=== PATIENT | female | born 1985 | race Caucasian/White ===

== ENCOUNTER 2017-12-17 10:08 | Emergency (ER) | payer OTHER ==
[~2017-12-17] VITALS: Ht 162.6 cm; Wt 68.0 kg
[2017-12-17] MEDS ORDERED: SODIUM CHLORIDE 0.9% 1,000 ML IV ONE (10:40)
[2017-12-17] MEDS ORDERED: LORAZEPAM 0.5MG TABLET PO ONE (11:00)
[2017-12-17 11:22] LABS: BASOPHILS % 0.6 % (0.0-2.0); EOSINOPHILS % 1.6 % (0.0-5.0); HEMATOCRIT. 38.3 % (36.0-48.0); LYMPHOCYTES % 31.7 % (20.0-50.0); MEAN CORPUSCULAR VOLUME 88.4 fL (81.0-99.0); MEAN PLATELET VOLUME 9.7 fl (7.4-10.4); MONOCYTES % 8.2 % (2.0-8.0); NEUTROPHILS % 57.9 % (40.0-76.0); PLATELET 204 x1000/uL (130-400); RED BLOOD CELL COUNT 4.33 mill/uL (4.2-5.4); RED CELL DISTRIBUTION WIDTH 13.8 % (11.6-14.6)
[2017-12-17 11:29] LABS: PROTHROMBIN TIME 10.2 sec (9.1-11.1)
[2017-12-17 11:37] LABS: HCG SCREEN NEGATIVE
[2017-12-17 12:01] LABS: CLARITY URINE CLEAR (CLEAR); COLOR URINE YELLOW (YELLOW); KETONES URINE NEGATIVE (NEGATIVE); LEUKOCYTE ESTERASE URINE NEGATIVE (NEGATIVE); NITRITE URINE NEGATIVE (NEGATIVE); OCCULT BLOOD URINE NEGATIVE (NEGATIVE); PH URINE 5.5 (4.5-8.0); PROTEIN URINE NEGATIVE (NEGATIVE); SPECIFIC GRAVITY URINE 1.011 (1.005-1.030); UROBILINOGEN URINE 0.2 E.U./dL (0.2-1.0)
[2017-12-17 12:35] LABS: CHLORIDE 106 mEq/L (98-107)
[2017-12-17 13:43] LABS: *BARBITURATES SCREEN URINE NEGATIVE (NEGATIVE)
[2017-12-17 13:44] LABS: *AMPHETAMINES SCREEN URINE NEGATIVE (NEGATIVE); *BENZODIAZEPINES SCREEN URINE NEGATIVE (NEGATIVE); *COCAINE SCREEN URINE NEGATIVE (NEGATIVE); CANNABINOID URINE SCREEN NEGATIVE (NEGATIVE); METHADONE URINE SCREEN NEGATIVE (NEGATIVE); OPIATES URINE SCREEN NEGATIVE (NEGATIVE)
[2017-12-17 14:14] LABS: PHENCYCLIDINE URINE SCREEN NEGATIVE (NEGATIVE)
[2017-12-17 14:18] VITALS: BP 112/72
== END 2017-12-17 15:28 | disposition home or self-care (01) ==
LOC: ER 10:33
DX: R00.2 Palpitations (principal); R42 Dizziness and giddiness; M54.9 Dorsalgia, unspecified; G89.29 Other chronic pain; F41.9 Anxiety disorder, unspecified; R06.00 Dyspnea, unspecified
CPT/HCPCS: 36415; 71045; 80048; 80305; 81003; 81025; 83880; 84443; 84484; 84703; 85025; 85610; 93005; 96360; 96361; 99285; J7030; Z7610